=== PATIENT | male | born 1950 ===

== ENCOUNTER 2017-04-07 20:31 | Inpatient (IN) | payer MEDICARE, MEDICAID ==
[~2017-04-07] VITALS: Ht 175.3 cm; Wt 66.5 kg
[~2017-04-07 20:31] MED LIST: ALBU18HF PO; ASPI-515 PO; ATOR40TA PO; BACL20TA PO; BENZ-17 PO; BISA10SU65 PR; CEFT2PIG2 IV; DIPH25CA61 PO; DOCU-131 PO; FAMO20TA7 PO; FLUT1BLS INH; FURO-92 PO; GUAI600T31 PO; HYDR-3240 PO; IPRA3AMP NPPB; LAMO25TA5 PO; LOSA50TA2 PO; OMEP-110 PO; OXYC5TAB3 PO; POLY17PO5 PO; PRAZ2CAP2 PO; PRED10TA PO; PREG25CA PO; TERA2CAP3 PO
[2017-04-07] MEDS ORDERED: MORPHINE SULFATE 4 MG/ML, 1ML ONE (20:59)
[2017-04-07] MEDS ORDERED: ONDANSETRON 2MG/ML, 2ML ONE (20:59)
[2017-04-07] MEDS ORDERED: SODIUM CHLORIDE FLUSH 10ML SYR IVF ONE (21:00)
[2017-04-07] MEDS ORDERED: SODIUM CHLORIDE 0.9% 1,000ML IVBOLUS ONE (21:00)
[2017-04-07] MEDS ORDERED: ONDANSETRON 2MG/ML, 2ML IVPush ONE (21:00)
[2017-04-07] MEDS ORDERED: MORPHINE SULFATE 4 MG/ML, 1ML IVPush PRN (21:00)
[2017-04-07 21:23] LABS: RAPID INFLUENZA A Negative (Negative); RAPID INFLUENZA B Negative (Negative)
[2017-04-07 21:38] LABS: BASOPHILS # (AUTO) 0.07 x10^3/uL (0-0.1); BASOPHILS % (AUTO) 1 % (0-1); EOSINOPHILS # (AUTO) 0.14 x10^3/uL (0-0.4); EOSINOPHILS % (AUTO) 1 % (1-7); LYMPHOCYTES # (AUTO) 2.71 x10^3/uL (1-3.4); LYMPHOCYTES % (AUTO) 26 % (22-44); MD NO; MEAN CORPUSCULAR HEMOGLOBIN 30.8 pg (27.5-34.5); MEAN CORPUSCULAR VOLUME 90.6 fL (81-97); MEAN PLATELET VOLUME 8.2 fL (7.4-10.4); MONOCYTES # (AUTO) 1.02 x10^3/uL (0.2-0.8); MONOCYTES % (AUTO) 10 % (2-9); NEUTROPHILS # (AUTO) 6.62 x10^3/uL (1.8-6.8); NEUTROPHILS % (AUTO) 63 % (42-75); PLATELET COUNT 168 x10^3/uL (130-400); RED CELL DISTRIBUTION WIDTH 14.2 % (9.4-14.8)
[2017-04-07 21:46] LABS: INTERNATIONAL NORMALIZED RATIO 0.98 (0.93-1.1); PROTHROMBIN TIME 10.2 Seconds (9.6-11.5)
[2017-04-07 21:51] LABS: ALANINE AMINOTRANSFERASE 22 U/L (12-78); ALBUMIN 2.8 g/dL (3.4-5.0); ANION GAP 5 mmol/L (5-15); CALCIUM 6.9 mg/dL (8.5-10.1); CHLORIDE 110 mmol/L (98-107); CREATININE 0.66 mg/dL (0.7-1.3)
[2017-04-07 21:56] LABS: ALKALINE PHOSPHATASE 123 U/L (45-117); BILIRUBIN,TOTAL 0.4 mg/dL (0.2-1.0); TOTAL PROTEIN 5.4 g/dL (6.4-8.2); TROPONIN I < 0.015 ng/mL (0.000-0.045)
[2017-04-07] MEDS ORDERED: OMNIPAQUE 350 MG/ML, 100ML BOTTLE ONE (22:36)
[2017-04-07] MEDS ORDERED: POTASSIUM CHLORIDE 20 MEQ TAB.ER.PRT PO ONE (23:30)
[2017-04-07] MEDS ORDERED: POTASSIUM CHLORIDE 20 MEQ TAB.ER.PRT ONE (23:51)
[2017-04-08 01:00] VITALS: BP 111/74
[2017-04-08 02:12] LABS: MICROSCOPIC NOT IND
[2017-04-08 02:24] LABS: CULTURE INDICATED? NO
[2017-04-08 08:26] VITALS: BP_SYST 104; BP_SYST 86; BP_SYST 95; BP_DIAS 55; BP_DIAS 58; BP_DIAS 69
[2017-04-08] MEDS ORDERED: DOCUSATE 100 MG CAPSULE PO PRN (09:30)
[2017-04-08] MEDS ORDERED: POLYETHYLENE GLYCOL 17 GM PACKET PO PRN (09:30)
[2017-04-08] MEDS: PRAZOSIN 2 MG CAPSULE PO SCH (09:30)
[2017-04-08] MEDS: ONDANSETRON 2MG/ML, 2ML IVPush PRN (10:10)
[2017-04-08] MEDS: morphine SULFATE 10 MG/ML, 1ML IVPush PRN ×3 (10:10→21:26)
[2017-04-08] MEDS: BENZONATATE 100 MG CAPSULE PO PRN (10:11)
[2017-04-08] MEDS: BACLOFEN 10 MG TABLET PO SCH ×2 (10:11→21:04)
[2017-04-08] MEDS: ALBUTEROL/IPRATROPIUM 2.5MG/0.5MG, 3 ML NPPB SCH ×3 (11:00→20:00)
[2017-04-08] MEDS: NS + 20MEQ KCL 1,000 ML IV SCH ×2 (11:15→18:34)
[2017-04-08 12:37] LABS: TROPONIN I < 0.015 ng/mL (0.000-0.045)
[2017-04-08 14:16] VITALS: BP 93/66
[2017-04-08] MEDS: GUAIFENESIN ER 600 MG TABLET PO SCH (21:02)
[2017-04-08] MEDS: LOSARTAN 50MG TABLET PO SCH (21:03)
[2017-04-08] MEDS: ATORVASTATIN 40 MG TABLET PO SCH (21:03)
[2017-04-08] MEDS: FAMOTIDINE 20 MG TABLET PO SCH (21:03)
[2017-04-08] MEDS: ENOXAPARIN 40 MG/0.4 ML SQ SCH (21:04)
[2017-04-08] MEDS: NICOTINE 14MG/24 HR PATCH.TD24 TD SCH (21:04)
[2017-04-08 21:29] VITALS: BP 119/72
[2017-04-09] MEDS: morphine SULFATE 10 MG/ML, 1ML IVPush PRN ×3 (01:50→16:39)
[2017-04-09] MEDS: ALBUTEROL/IPRATROPIUM 2.5MG/0.5MG, 3 ML NPPB SCH ×5 (02:10→20:00)
[2017-04-09 02:33] VITALS: BP 95/58
[2017-04-09 05:36] LABS: ANION GAP 7 mmol/L (5-15); CALCIUM 8.1 mg/dL (8.5-10.1); CHLORIDE 113 mmol/L (98-107)
[2017-04-09 05:38] LABS: CREATININE 0.74 mg/dL (0.7-1.3)
[2017-04-09 07:33] VITALS: BP 110/68
[2017-04-09] MEDS ORDERED: MAGNESIUM SULFATE PMX 2GM/50ML 50 ML IV ONE (09:00)
[2017-04-09] MEDS: PRAZOSIN 2 MG CAPSULE PO SCH (09:00)
[2017-04-09] MEDS ORDERED: NS + 20MEQ KCL 1,000 ML IV SCH (09:00)
[2017-04-09] MEDS: ONDANSETRON 2MG/ML, 2ML IVPush PRN (09:20)
[2017-04-09] MEDS: GUAIFENESIN ER 600 MG TABLET PO SCH ×2 (09:21→23:00)
[2017-04-09] MEDS: BENZONATATE 100 MG CAPSULE PO PRN (09:21)
[2017-04-09] MEDS: PREGABALIN 25 MG CAPSULE PO SCH (09:21)
[2017-04-09] MEDS: FAMOTIDINE 20 MG TABLET PO SCH ×2 (09:21→23:00)
[2017-04-09] MEDS: ASPIRIN 81 MG TABLET EC PO SCH (09:21)
[2017-04-09] MEDS: BACLOFEN 10 MG TABLET PO SCH ×2 (09:21→23:00)
[2017-04-09] MEDS: LAMOTRIGINE 25 MG TABLET PO SCH (09:21)
[2017-04-09] MEDS: SENNA/DOCUSATE TABLET PO SCH (09:22)
[2017-04-09] MEDS: LOSARTAN 50MG TABLET PO SCH ×2 (09:22→23:00)
[2017-04-09] MEDS: FLUTICASONE/VILANTEROL 200-25MCG/INH INH SCH (09:32)
[2017-04-09] MEDS: ACETAMINOPHEN 325 MG TABLET PO PRN ×2 (11:54→22:59)
[2017-04-09 15:58] VITALS: BP 109/73
[2017-04-09] MEDS: TAMSULOSIN 0.4 MG CAP.ER.24H PO SCH (16:39)
[2017-04-09 20:42] VITALS: BP 109/58
[2017-04-09] MEDS: ATORVASTATIN 40 MG TABLET PO SCH (23:00)
[2017-04-09] MEDS: NICOTINE 14MG/24 HR PATCH.TD24 TD SCH (23:00)
[2017-04-09] MEDS: ENOXAPARIN 40 MG/0.4 ML SQ SCH (23:01)
[2017-04-10] MEDS: morphine SULFATE 10 MG/ML, 1ML IVPush PRN (00:29)
[2017-04-10 02:37] VITALS: BP 129/75
[2017-04-10] MEDS: OXYcodone IR 5MG TABLET PO PRN ×2 (02:45→10:39)
[2017-04-10 05:48] LABS: BASOPHILS # (AUTO) 0.28 x10^3/uL (0-0.1); BASOPHILS % (AUTO) 3 % (0-1); EOSINOPHILS # (AUTO) 0.01 x10^3/uL (0-0.4); EOSINOPHILS % (AUTO) 0 % (1-7); LYMPHOCYTES # (AUTO) 1.65 x10^3/uL (1-3.4); LYMPHOCYTES % (AUTO) 19 % (22-44); MD NO; MEAN CORPUSCULAR HEMOGLOBIN 30.6 pg (27.5-34.5); MEAN CORPUSCULAR HGB CONC 33.4 g/dL (33.2-36.2); MEAN CORPUSCULAR VOLUME 91.8 fL (81-97); MEAN PLATELET VOLUME 8.7 fL (7.4-10.4); MONOCYTES # (AUTO) 0.92 x10^3/uL (0.2-0.8); MONOCYTES % (AUTO) 11 % (2-9); NEUTROPHILS # (AUTO) 5.94 x10^3/uL (1.8-6.8); NEUTROPHILS % (AUTO) 68 % (42-75); PLATELET COUNT 179 x10^3/uL (130-400); RED BLOOD COUNT 4.12 x10^6/uL (4.38-5.82); RED CELL DISTRIBUTION WIDTH 14.6 % (9.4-14.8)
[2017-04-10 05:55] LABS: ANION GAP 8 mmol/L (5-15); CALCIUM 8.3 mg/dL (8.5-10.1); CHLORIDE 111 mmol/L (98-107); CREATININE 0.63 mg/dL (0.7-1.3)
[2017-04-10] MEDS: ALBUTEROL/IPRATROPIUM 2.5MG/0.5MG, 3 ML NPPB SCH ×2 (07:00→11:00)
[2017-04-10] MEDS: PREGABALIN 25 MG CAPSULE PO SCH (08:15)
[2017-04-10] MEDS: PRAZOSIN 2 MG CAPSULE PO SCH (08:15)
[2017-04-10] MEDS: FAMOTIDINE 20 MG TABLET PO SCH (08:15)
[2017-04-10] MEDS: GUAIFENESIN ER 600 MG TABLET PO SCH (08:15)
[2017-04-10] MEDS: FLUTICASONE/VILANTEROL 200-25MCG/INH INH SCH (08:15)
[2017-04-10] MEDS: LOSARTAN 50MG TABLET PO SCH (08:16)
[2017-04-10] MEDS: TAMSULOSIN 0.4 MG CAP.ER.24H PO SCH (08:16)
[2017-04-10] MEDS: SENNA/DOCUSATE TABLET PO SCH (08:16)
[2017-04-10] MEDS: BENZONATATE 100 MG CAPSULE PO PRN (08:16)
[2017-04-10] MEDS: ASPIRIN 81 MG TABLET EC PO SCH (08:16)
[2017-04-10] MEDS: BACLOFEN 10 MG TABLET PO SCH (08:16)
[2017-04-10] MEDS: LAMOTRIGINE 25 MG TABLET PO SCH (08:17)
[2017-04-10 10:03] VITALS: BP 124/57
[2017-04-10] MEDS: ACETAMINOPHEN 325 MG TABLET PO PRN (10:39)
[2017-04-10] MEDS ORDERED: ALBUTEROL/IPRATROPIUM 2.5MG/0.5MG, 3 ML NPPB PRN (15:00)
[2017-04-10 15:42] VITALS: BP 118/65
== END 2017-04-10 16:50 | disposition home or self-care (01) | DRG 391 ==
LOC: ED 23:38 → EDIP 23:40 → 4NOR 04-08 00:45
PROVIDERS: ADMIT Surgery; ATTEND Family Medicine
DX: A08.4 Viral intestinal infection, unspecified (principal); E43 Unspecified severe protein-calorie malnutrition; I50.9 Heart failure, unspecified; J44.9 Chronic obstructive pulmonary disease, unspecified; E86.0 Dehydration; E83.42 Hypomagnesemia; E87.6 Hypokalemia; G89.29 Other chronic pain; G40.909 Epilepsy, unspecified, not intractable, without status epilepticus; F17.200 Nicotine dependence, unspecified, uncomplicated; I25.2 Old myocardial infarction; Z86.73 Personal history of transient ischemic attack (TIA), and cerebral infarction without residual deficits; Z87.01 Personal history of pneumonia (recurrent); Z90.49 Acquired absence of other specified parts of digestive tract; Z79.82 Long term (current) use of aspirin; Z79.899 Other long term (current) drug therapy; Z85.9 Personal history of malignant neoplasm, unspecified
CPT/HCPCS: 36415; 70450; 71045; 74177; 80048; 80053; 80307; 81003; 83605; 83735; 83880; 84145; 84484; 85025; 85610; 85730; 87040; 87400; 93005; 94640; 96361; 96374; 96375; J1650; J2405; J3480; J7620; Q9967; G0479; J2270; J3475; J7030

== ENCOUNTER 2017-11-18 19:35 | Inpatient (IN) | payer MEDICARE, MEDICAID ==
[~2017-11-18] VITALS: Ht 172.7 cm; Wt 72.8 kg
[~2017-11-18 19:35] MED LIST changes: -IPRA3AMP NPPB; +IPRA3AMP30 NPPB
[2017-11-18] MEDS ORDERED: ALBUTEROL/IPRATROPIUM 2.5MG/0.5MG, 3 ML ONE (19:46)
[2017-11-18] MEDS ORDERED: TRAZ-137 PO (19:49)
[2017-11-18] MEDS ORDERED: DULO30CA2 PO (19:49)
[2017-11-18] MEDS ORDERED: CHOL100012 PO (19:59)
[2017-11-18] MEDS ORDERED: MAGN500T PO (19:59)
[2017-11-18] MEDS ORDERED: TERA5CAP3 PO (19:59)
[2017-11-18] MEDS ORDERED: LORA1TAB PO (19:59)
[2017-11-18] MEDS ORDERED: [UNRECOGNIZED DRUG - OTHER] (19:59)
[2017-11-18] MEDS ORDERED: OXYC1TAB7 PO (19:59)
[2017-11-18] MEDS ORDERED: CYAN100072 PO (19:59)
[2017-11-18] MEDS ORDERED: methylPREDNISolone SOD SUCC 125 MG/2 ML IVP ONE (20:00)
[2017-11-18] MEDS ORDERED: SODIUM CHLORIDE FLUSH 10ML SYR IVF ONE (20:00)
[2017-11-18 20:12] LABS: BASOPHILS # (AUTO) 0.23 x10^3/uL (0-0.1); BASOPHILS % (AUTO) 2 % (0-1); EOSINOPHILS # (AUTO) 0.12 x10^3/uL (0-0.4); EOSINOPHILS % (AUTO) 1 % (1-7); LYMPHOCYTES # (AUTO) 3.06 x10^3/uL (1-3.4); LYMPHOCYTES % (AUTO) 25 % (22-44); MD NO; MEAN CORPUSCULAR HEMOGLOBIN 31.4 pg (27.5-34.5); MEAN CORPUSCULAR HGB CONC 34.5 g/dL (33.2-36.2); MEAN CORPUSCULAR VOLUME 91.2 fL (81-97); MEAN PLATELET VOLUME 8.5 fL (7.4-10.4); MONOCYTES # (AUTO) 1.12 x10^3/uL (0.2-0.8); MONOCYTES % (AUTO) 9 % (2-9); NEUTROPHILS # (AUTO) 7.78 x10^3/uL (1.8-6.8); NEUTROPHILS % (AUTO) 63 % (42-75); PLATELET COUNT 174 x10^3/uL (130-400); RED BLOOD COUNT 4.11 x10^6/uL (4.38-5.82); RED CELL DISTRIBUTION WIDTH 14.4 % (9.4-14.8)
[2017-11-18] MEDS: ALBUTEROL/IPRATROPIUM 2.5MG/0.5MG, 3 ML NPPB SCH ×2 (20:17→20:36)
[2017-11-18 20:18] LABS: INTERNATIONAL NORMALIZED RATIO 0.96 (0.93-1.1)
[2017-11-18 20:22] LABS: ALANINE AMINOTRANSFERASE 18 U/L (12-78); ALBUMIN 3.2 g/dL (3.4-5.0); ANION GAP 4 mmol/L (5-15); CALCIUM 7.6 mg/dL (8.5-10.1); CHLORIDE 100 mmol/L (98-107); CREATININE 0.98 mg/dL (0.7-1.3)
[2017-11-18] MEDS ORDERED: methylPREDNISolone SOD SUCC 125 MG/2 ML ONE (20:23)
[2017-11-18 20:26] LABS: ALKALINE PHOSPHATASE 107 U/L (45-117); BILIRUBIN,TOTAL 0.5 mg/dL (0.2-1.0); TROPONIN I < 0.015 ng/mL (0.000-0.045)
[2017-11-18] MEDS ORDERED: SODIUM CHLORIDE 0.9% 1,000ML IVBOLUS ONE (20:30)
[2017-11-18] MEDS ORDERED: KETOROLAC 30 MG/1 ML IVPush ONE (21:00)
[2017-11-18] MEDS ORDERED: OMNIPAQUE 350 MG/ML, 100ML BOTTLE ONE (21:23)
[2017-11-18] MEDS ORDERED: MAGNESIUM SULFATE PMX 2GM/50ML 50 ML IV ONE (21:30)
[2017-11-18] MEDS ORDERED: KETOROLAC 30 MG/1 ML ONE (21:37)
[2017-11-18] MEDS ORDERED: ONDANSETRON ODT 4 MG PO PRN (22:00)
[2017-11-18] MEDS ORDERED: DOCUSATE 100 MG CAPSULE PO PRN (22:00)
[2017-11-18] MEDS ORDERED: BISACODYL 10 MG SUPP PR PRN (22:00)
[2017-11-18] MEDS ORDERED: ENALAPRILAT 1.25 MG/ML, 2ML IVPush PRN (22:00)
[2017-11-18] MEDS ORDERED: ACETAMINOPHEN 325 MG TABLET PO PRN (22:00)
[2017-11-18] MEDS ORDERED: methylPREDNISolone SOD SUCC 125 MG/2 ML IVPush SCH (22:00)
[2017-11-18] MEDS ORDERED: POLYETHYLENE GLYCOL 17 GM PACKET PO PRN (22:00)
[2017-11-18] MEDS ORDERED: ONDANSETRON 2MG/ML, 2ML IVPush PRN (22:00)
[2017-11-18 22:36] LABS: TROPONIN I < 0.015 ng/mL (0.000-0.045)
[2017-11-19 01:28] VITALS: BP 108/69
[2017-11-19 05:52] LABS: BASOPHILS # (AUTO) 0.03 x10^3/uL (0-0.1); BASOPHILS % (AUTO) 0 % (0-1); EOSINOPHILS # (AUTO) 0.01 x10^3/uL (0-0.4); EOSINOPHILS % (AUTO) 0 % (1-7); LYMPHOCYTES % (AUTO) 15 % (22-44); MD NO; MEAN CORPUSCULAR HEMOGLOBIN 30.9 pg (27.5-34.5); MEAN CORPUSCULAR VOLUME 90.9 fL (81-97); MEAN PLATELET VOLUME 8.5 fL (7.4-10.4); MONOCYTES # (AUTO) 0.21 x10^3/uL (0.2-0.8); MONOCYTES % (AUTO) 2 % (2-9); NEUTROPHILS # (AUTO) 7.71 x10^3/uL (1.8-6.8); NEUTROPHILS % (AUTO) 82 % (42-75); PLATELET COUNT 166 x10^3/uL (130-400); RED BLOOD COUNT 4.26 x10^6/uL (4.38-5.82)
[2017-11-19 06:00] LABS: ALBUMIN 3.1 g/dL (3.4-5.0); ANION GAP 4 mmol/L (5-15); CHLORIDE 101 mmol/L (98-107)
[2017-11-19] MEDS: ENOXAPARIN 40 MG/0.4 ML SQ SCH (06:01)
[2017-11-19 06:06] LABS: ALANINE AMINOTRANSFERASE 19 U/L (12-78); ALKALINE PHOSPHATASE 123 U/L (45-117); BILIRUBIN,TOTAL 0.5 mg/dL (0.2-1.0); CREATININE 1.55 mg/dL (0.7-1.3); TOTAL PROTEIN 6.1 g/dL (6.4-8.2); TROPONIN I < 0.015 ng/mL (0.000-0.045)
[2017-11-19 06:12] LABS: THYROID STIMULATING HORMONE 0.233 mIU/L (0.358-3.740)
[2017-11-19] MEDS: OXYcodone IR 5MG TABLET PO PRN ×2 (06:16→14:05)
[2017-11-19 06:20] LABS: MICROSCOPIC NOT IND
[2017-11-19 06:37] LABS: CULTURE INDICATED? NO
[2017-11-19 07:11] VITALS: BP 112/50
[2017-11-19] MEDS: ALBUTEROL/IPRATROPIUM 2.5MG/0.5MG, 3 ML NPPB SCH ×4 (08:30→19:44)
[2017-11-19] MEDS: MAGNESIUM OXIDE 400 MG TABLET PO SCH ×2 (09:37→21:44)
[2017-11-19] MEDS: CHOLECALCIFEROL 1,000 UNIT TABLET PO SCH ×2 (09:37→21:44)
[2017-11-19] MEDS: ASPIRIN 81 MG TABLET EC PO SCH (09:37)
[2017-11-19] MEDS: PREGABALIN 25 MG CAPSULE PO SCH (09:38)
[2017-11-19] MEDS: BACLOFEN 10 MG TABLET PO SCH ×2 (09:38→21:44)
[2017-11-19] MEDS: OMEPRAZOLE 20 MG CAPSULE.DR PO SCH (09:38)
[2017-11-19] MEDS: NICOTINE 21 MG/24 HR PATCH.TD24 TD SCH (09:38)
[2017-11-19] MEDS: CYANOCOBALAMIN 1,000 MCG TABLET PO SCH (09:38)
[2017-11-19] MEDS: DULOXETINE 30 MG CAPSULE.DR PO SCH (09:38)
[2017-11-19] MEDS: LAMOTRIGINE 25 MG TABLET PO SCH (09:38)
[2017-11-19 12:13] VITALS: BP 147/67
[2017-11-19] MEDS ORDERED: ATORVASTATIN 40 MG TABLET PO SCH (21:00)
[2017-11-19] MEDS ORDERED: TERAZOSIN 5MG CAPSULE PO SCH (21:00)
[2017-11-19 22:53] VITALS: BP 147/68
[2017-11-20] MEDS: ALBUTEROL/IPRATROPIUM 2.5MG/0.5MG, 3 ML NPPB SCH ×3 (00:33→12:00)
[2017-11-20 03:41] VITALS: BP 133/66
[2017-11-20] MEDS: OXYcodone IR 5MG TABLET PO PRN (03:45)
[2017-11-20] MEDS: ENOXAPARIN 40 MG/0.4 ML SQ SCH (06:14)
[2017-11-20 06:55] VITALS: BP 130/72
[2017-11-20 08:26] LABS: BASOPHILS # (AUTO) 0.09 x10^3/uL (0-0.1); BASOPHILS % (AUTO) 1 % (0-1); EOSINOPHILS % (AUTO) 0 % (1-7); LYMPHOCYTES # (AUTO) 2.35 x10^3/uL (1-3.4); LYMPHOCYTES % (AUTO) 19 % (22-44); MD NO; MEAN CORPUSCULAR HEMOGLOBIN 30.4 pg (27.5-34.5); MEAN CORPUSCULAR HGB CONC 33.6 g/dL (33.2-36.2); MEAN CORPUSCULAR VOLUME 90.5 fL (81-97); MEAN PLATELET VOLUME 8.6 fL (7.4-10.4); MONOCYTES # (AUTO) 0.99 x10^3/uL (0.2-0.8); MONOCYTES % (AUTO) 8 % (2-9); NEUTROPHILS % (AUTO) 73 % (42-75); PLATELET COUNT 174 x10^3/uL (130-400); RED BLOOD COUNT 3.97 x10^6/uL (4.38-5.82); RED CELL DISTRIBUTION WIDTH 14.4 % (9.4-14.8)
[2017-11-20 08:31] LABS: ANION GAP 4 mmol/L (5-15); CALCIUM 8.5 mg/dL (8.5-10.1); CHLORIDE 99 mmol/L (98-107); CREATININE 0.76 mg/dL (0.7-1.3)
[2017-11-20] MEDS: NICOTINE 21 MG/24 HR PATCH.TD24 TD SCH (09:11)
[2017-11-20] MEDS: CHOLECALCIFEROL 1,000 UNIT TABLET PO SCH (09:11)
[2017-11-20] MEDS: DULOXETINE 30 MG CAPSULE.DR PO SCH (09:11)
[2017-11-20] MEDS: PREGABALIN 25 MG CAPSULE PO SCH (09:12)
[2017-11-20] MEDS: OMEPRAZOLE 20 MG CAPSULE.DR PO SCH (09:12)
[2017-11-20] MEDS: BACLOFEN 10 MG TABLET PO SCH (09:12)
[2017-11-20] MEDS: CYANOCOBALAMIN 1,000 MCG TABLET PO SCH (09:12)
[2017-11-20] MEDS: LAMOTRIGINE 25 MG TABLET PO SCH (09:12)
[2017-11-20] MEDS: ASPIRIN 81 MG TABLET EC PO SCH (09:12)
[2017-11-20] MEDS: MAGNESIUM OXIDE 400 MG TABLET PO SCH (09:12)
[2017-11-20] MEDS ORDERED: PRED20TA PO (10:53)
[2017-11-20] MEDS ORDERED: IPRA3AMP30 NPPB (10:53)
== END 2017-11-20 13:00 | disposition home or self-care (01) | DRG 189 ==
LOC: ED 21:24 → EDIP 21:39 → 5SO 11-19 04:53
PROVIDERS: ADMIT Hospitalist; ATTEND Hospitalist
DX: J96.01 Acute respiratory failure with hypoxia (principal); J44.1 Chronic obstructive pulmonary disease with (acute) exacerbation; E87.1 Hypo-osmolality and hyponatremia; I50.9 Heart failure, unspecified; G40.909 Epilepsy, unspecified, not intractable, without status epilepticus; F17.210 Nicotine dependence, cigarettes, uncomplicated; D72.829 Elevated white blood cell count, unspecified; I11.0 Hypertensive heart disease with heart failure; I35.8 Other nonrheumatic aortic valve disorders; N40.1 Benign prostatic hyperplasia with lower urinary tract symptoms; R33.8 Other retention of urine; I95.9 Hypotension, unspecified; M54.2 Cervicalgia; Z86.73 Personal history of transient ischemic attack (TIA), and cerebral infarction without residual deficits; Z85.118 Personal history of other malignant neoplasm of bronchus and lung; I25.2 Old myocardial infarction; Z88.5 Allergy status to narcotic agent; Z98.1 Arthrodesis status; Z90.49 Acquired absence of other specified parts of digestive tract
CPT/HCPCS: 36415; 71045; 71275; 74018; 80048; 80053; 81003; 83605; 83735; 83880; 84100; 84145; 84443; 84484; 85025; 85610; 93005; 93306; 94640; 96374; J1650; J1885; J7620; Q9967; J2930; J3475; J7030; J7512

== ENCOUNTER → 2020-09-20 | Outpatient (CLI) | payer OTHER ==
[~2020-09-20] MED LIST changes: -ASPI-515 PO; +ASPI-963 PO; +CHOL100012 PO; +CYAN100072 PO; +DULO30CA2 PO; +HYDR-2214 PO; -HYDR-3240 PO; +HYDR-826 PO; +LORA1TAB PO; +MAGN500T PO; +OXYC1TAB18 PO; +OXYC1TAB7 PO; -OXYC5TAB3 PO; +OXYC5TAB98 PO; +PRED20TA PO; +ROPI1TAB4 PO; +TERA5CAP3 PO; +TRAZ-175 PO; +[UNRECOGNIZED DRUG - OTHER]
== END | disposition home or self-care (01) ==
LOC: ROC 10:06
PROVIDERS: ATTEND Radiology Radiation Oncology
DX: C34.12 Malignant neoplasm of upper lobe, left bronchus or lung (principal); J44.9 Chronic obstructive pulmonary disease, unspecified; J96.11 Chronic respiratory failure with hypoxia; G89.29 Other chronic pain; Z79.01 Long term (current) use of anticoagulants; Z79.891 Long term (current) use of opiate analgesic; Z79.899 Other long term (current) drug therapy
CPT/HCPCS: 99214; G0463

== ENCOUNTER → 2020-09-27 | Outpatient (CLI) | payer OTHER | END | disposition home or self-care (01) | LOC: PETCFH 13:40 | PROVIDERS: ATTEND Family Medicine | DX: C34.12 Malignant neoplasm of upper lobe, left bronchus or lung (principal); R91.1 Solitary pulmonary nodule | CPT/HCPCS: 78815; A9552 ==

== ENCOUNTER → 2020-11-08 | Outpatient (CLI) | payer OTHER | END | disposition home or self-care (01) | LOC: ROC 09:37 | PROVIDERS: ATTEND Radiology Radiation Oncology | DX: Z08 Encounter for follow-up examination after completed treatment for malignant neoplasm (principal); Z85.118 Personal history of other malignant neoplasm of bronchus and lung; J44.9 Chronic obstructive pulmonary disease, unspecified; J96.11 Chronic respiratory failure with hypoxia; I11.0 Hypertensive heart disease with heart failure; E78.5 Hyperlipidemia, unspecified; F32.9 Major depressive disorder, single episode, unspecified; G89.29 Other chronic pain; Z87.891 Personal history of nicotine dependence; Z79.899 Other long term (current) drug therapy; Z79.01 Long term (current) use of anticoagulants; Z79.891 Long term (current) use of opiate analgesic | CPT/HCPCS: G2251 ==